=== PATIENT | female | born 1935 | race Caucasian/White ===

== ENCOUNTER 2023-04-20 02:58 | Inpatient (IN) | payer MEDICARE, BC ==
[2023-04-20] MEDS ORDERED: NALOXONE 0.4 MG/ML 1 ML VIAL IV PRN (03:23)
[2023-04-20] MEDS ORDERED: ONDANSETRON 4 MG/2 ML VIAL IVP PRN ×2 (03:23→18:43)
--- NOTE | 2023-04-20 03:31 | ED ---
Recheck HPI - General Chief Complaint: Abdominal Pain Stated Complaint: Small bowel obstruction Time Seen by Provider: 04/20/23 03:01 Source: patient, EMS, RN notes reviewed, old records reviewed Mode of arrival: EMS Limitations: no limitations - History of Present Illness Initial Comments: This is a 87-year-old female to the emergency department today. This patient presents today for evaluation regards to severe abdominal pain with diagnosed small bowel obstruction, patient does have NG tube in place. Pain is currently controlled patient accepted in transfer from outside facility, obstruction is related to along hernia MD Complaint: other (Small bowel obstruction with hernia) -: hour(s) Returns Today for: persistent/worsening pain related to initial visit Symptoms Since Prior Visit: worsening pain Associated Symptoms: none Treatments Prior to Arrival: Given Pain Meds on - Related Data Home Medications Medication Instructions Recorded Confirmed Apixaban [Eliquis] 5 mg PO BID 04/20/23 04/20/23 Donepezil [Aricept] 10 mg PO HS 04/20/23 04/20/23 Levothyroxine Sodium [Synthroid] 25 mcg PO DAILY 04/20/23 04/20/23 Memantine [Namenda] 5 mg PO DAILY 04/20/23 04/20/23 Metoprolol Succinate (ER) [Toprol 100 mg PO DAILY 04/20/23 04/20/23 XL] NIFEdipine [Adalat CC] 30 mg PO DAILY 04/20/23 04/20/23 Potassium Chloride ER [K-Dur 10] 10 meq PO BID 04/20/23 04/20/23 Rosuvastatin [Crestor] 10 mg PO HS 04/20/23 04/20/23 Previous Rx's Medication Instructions Recorded Acetaminophen Tab [Tylenol] 1,000 mg PO Q6HR PRN #30 tablet 04/24/23 Allergies Allergy/AdvReac Type Severity Reaction Status Date / Time No Known Allergies Allergy Verified 04/20/23 16:39 Review of Systems ROS Statement: Those systems with pertinent positive or pertinent negative responses have been documented in the HPI. ROS Other: All systems not noted in ROS Statement are negative. Past Medical History Past Medical History: Unable to Obtain Past Surgical History: Unable to Obtain Past Psychological History: Unable to Obtain General Exam General appearance: alert, in no apparent distress, anxious Head exam: Present: atraumatic, normocephalic, normal inspection Eye exam: Present: normal appearance, PERRL, EOMI. Absent: scleral icterus, conjunctival injection, periorbital swelling ENT exam: Present: normal exam, mucous membranes moist Neck exam: Present: normal inspection. Absent: tenderness, meningismus, lymphadenopathy Respiratory exam: Present: normal lung sounds bilaterally. Absent: respiratory distress, wheezes, rales, rhonchi, stridor Cardiovascular Exam: Present: normal rhythm, tachycardia, normal heart sounds. Absent: systolic murmur, diastolic murmur, rubs, gallop, clicks GI/Abdominal exam: Present: soft, normal bowel sounds. Absent: distended, tenderness, guarding, rebound, rigid Extremities exam: Present: normal inspection, full ROM, normal capillary refill. Absent: tenderness, pedal edema, joint swelling, calf tenderness Back exam: Present: normal inspection Neurological exam: Present: alert, oriented X3, CN II-XII intact Psychiatric exam: Present: normal affect, normal mood Skin exam: Present: warm, dry, intact, normal color. Absent: rash Course Vital Signs 04/20/23 04/20/23 04/20/23 03:13 04:05 04:30 Temperature 98.1 F Pulse Rate 105 H 89 90 Respiratory 21 19 18 Rate Blood Pressure 190/116 186/99 183/105 O2 Sat by Pulse 95 96 95 Oximetry 04/20/23 04/20/23 04/20/23 05:00 05:30 06:00 Temperature Pulse Rate 93 97 95 Respiratory 20 19 20 Rate Blood Pressure 128/100 166/85 166/85 O2 Sat by Pulse 95 95 91 L Oximetry 04/20/23 04/20/23 06:30 07:10 Temperature 97.4 F L Pulse Rate 93 80 Respiratory 19 16 Rate Blood Pressure 149/79 147/86 O2 Sat by Pulse 92 L 96 Oximetry - Reevaluation(s) Reevaluation #1: 04/20/23 03:29 Medical records reviewed Reevaluation #2: 04/20/23 03:29 Patient symptoms doesn't here in the ER Patient has NG tube placed Reevaluation #3: 04/20/23 03:30 Patient informed results questions answered Patient's pain is controlled Reevaluation #4: 04/20/23 03:30 Was pt. sent in by a medical professional or institution (, PA, [employer], urgent care, hospital, or [facility]...) When possible be specific @ -no Did you speak to anyone other than the patient for history (EMS, parent, family, police, friend...)? What history was obtained from this source @ -no Did you review nursing and triage notes (agree or disagree)? Why? @ -agree Are old charts reviewed (outside hosp., previous admission, EMS record, old EKG, old radiological studies, urgent care reports/EKG's, [facility] records)? Report findings @ -yes Differential Diagnosis (chest pain, altered mental status, abdominal pain women, abdominal pain men, vaginal bleeding, weakness, fever, dyspnea, syncope, headache, dizziness, GI bleed, back pain, seizure, CVA, palpatations, mental health, musculoskeletal)? @ -prior EKG interpreted by me (3pts min.). @ -yes X-rays interpreted by me (1pt min.). @ -yes Small bowel obstruction CT interpreted by me (1pt min.). @ -no U/S interpreted by me (1pt. min.). @ -no What testing was considered but not performed or refused? (CT, X-rays, U/S, labs)? Why? @ -none What meds were considered but not given or refused? Why? @ -none Did you discuss the management of the patient with other professionals (professionals i.e. , PA, [employer], lab, RT, psych nurse, secondary social studies teacher, building engineer, teacher, defence force senior officer, immigration case manager)? Give summary @ -no Was smoking cessation discussed for >3mins.? @ -no Was critical care preformed (if so, how long)? @ -no Were there social determinants of health that impacted care today? How? (Homelessness, low income, unemployed, alcoholism, drug addiction, transportation, low edu. Level, literacy, decrease access to med. care, residential, rehab)? @ -none Was there de-escalation of care discussed even if they declined (Discuss DNR or withdrawal of care, Hospice)? DNR status @ -no What co-morbidities impacted this encounter? (DM, HTN, Smoking, COPD, CAD, Cancer, CVA, ARF, Chemo, Hep., AIDS, mental health diagnosis, sleep apnea, morbid obesity)? @ -none Was patient admitted / discharged? Hospital course, mention meds given and route, prescriptions, significant lab abnormalities, going to OR and other pertinent info. @ - 87 female to the ER for evaluation as a transfer patient for small bowel obstruction, patient will be admitted for surgical evaluation and treatment Undiagnosed new problem with uncertain prognosis? @ -no Drug Therapy requiring intensive monitoring for toxicity (Heparin, Nitro, Insulin, Cardizem)? @ -no Were any procedures done? @ -no Diagnosis/symptom? @ -Small bowel obstruction Acute, or Chronic, or Acute on Chronic? @ -Acute Uncomplicated (without systemic symptoms) or Complicated (systemic symptoms)? @ -Complicated Side effects of treatment? @ -no Exacerbation, Progression, or Severe Exacerbation? @ -exacerbation Poses a threat to life or bodily function? How? (Chest pain, [place], [place], pneumonia, PE, COPD, DKA, ARF, appy, cholecystitis, CVA, Diverticulitis, Homicidal, Suicidal, threat to staff... and all critical care pts) @ -yes significant extremes of age Reevaluation #5: 04/20/23 03:30 Differential Abdominal Pain Women: Appendicitis, Cholecystitis, diverticulosis, ischemic bowel, pancreatitis, hepatitis, UTI, gastroenteritis, AAA, incarcerated hernia, bowel obstruction, constipation, inflammatory bowel, hepatitis, peptic ulcer disease, splenic infarction, perforated viscus, vulvitis, ovarian torsion, PID, kidney stone, placenta abruption, this is not meant to be an all-inclusive list - Consultations Consultation #1: Spoke with sound who agrees to admit this patient Medical Decision Making - Medical Decision Making 87 female to the ER for evaluation as a transfer patient for small bowel obstruction, patient will be admitted for surgical evaluation and treatment - Lab Data Result diagrams: 04/23/23 08:29 04/23/23 08:29 - Radiology Data Radiology results: report reviewed (sbo on computed tomography scan of prior hospital, also shortness x-ray chest and KUB here in the emergency department) Disposition Clinical Impression: Small bowel obstruction, Abdominal pain, Ventral hernia with bowel obstruction Disposition: ADMITTED IP TO THIS HOSP Condition: Stable Is patient prescribed a controlled substance at d/c from ED?: No Time of Disposition: 03:30
[2023-04-20] MEDS: SODIUM CHLORIDE 0.9% 1,000 ML IV SCH ×2 (03:43→22:03)
[2023-04-20] MEDS: MORPHINE SULFATE 4 MG/ML SYRINGE IV PRN (03:58)
--- NOTE | 2023-04-20 05:41 | XR ---
EXAMINATION TYPE: XR chest 1V portable DATE OF EXAM: 04/20/2023 COMPARISON: NONE HISTORY: Small bowel obstruction. TECHNIQUE: Single frontal view of the chest is obtained. FINDINGS: Post-CABG changes with sternal wires and mediastinal clips is present. Nasogastric tube is coiled in the gastric fundus. There is reticular increased markings bilaterally favoring chronic pare nchymal change with focal lateral left basilar increased opacity. The cardiac silhouette size is mil dly enlarged. Degenerative change bilateral glenohumeral joints is seen. Cholecystectomy clips are no noel. IMPRESSION: Mild cardiomegaly and chronic parenchymal changes with patchy lateral left basilar acute infiltrate and/or atelectasis.
--- NOTE | 2023-04-20 05:43 | XR ---
EXAMINATION TYPE: XR KUB portable DATE OF EXAM: 04/20/2023 CLINICAL HISTORY: Small bowel obstruction. TECHNIQUE: 2 supine KUB images of the abdomen are obtained. COMPARISON: None. FINDINGS: Nasogastric tube is coiled in the gastric fundus. Some paucity of bowel gas. Scattered gas seen in nondistended bowel loops. Slightly prominent gas-filled bowel loop right upper pelvis. Contra st from recent outside CT seen in the right proximal ureter is slightly prominent. Contrast also fill ing bladder. There is levoconvex scoliosis centered at L2-L3 level with multilevel disc space narrowi ng and spurring. Post-CABG changes to the chest are partially imaged. [id number] narrowing of both hip joints is present. IMPRESSION: Overall nonspecific bowel gas pattern.
--- NOTE | 2023-04-20 12:21 | P.GSHP ---
History of Present Illness H&P Date: 04/20/23 CHIEF COMPLAINT: Abdominal pain HISTORY OF PRESENT ILLNESS: This is an 87 year old female who presented initially to [address] [place] [address] regarding her abdominal pain. She apparently had epigastric pain with nausea and vomiting for 3 days per patient's chart. She had a CAT scan completed their the head showed evidence of multiple borderline dilated small bowel loops measuring up to nearly 3 cm concerning for an evolving obstruction secondary to a right abdominal wall hernia containing bowel. Patient was then transferred to [facility] to be evaluated by surgical service. Patient has NG tube in place with about 130 mL brownish output. She reports that her pain is improving. She is having some flatus. No bowel movement reported. She does have a history of dementia. History was mostly obtained from patient's chart. Past surgical history does include an appendectomy, cholecystectomy and hysterectomy. Cardiac history of CABG. Patient is on Eliquis last dose 04/19/23 at 6pm. PAST MEDICAL HISTORY: Dementia, coronary artery disease, hyperlipidemia, hypertension, hypothyroidism PAST SURGICAL HISTORY: Appendectomy, cholecystectomy, hysterectomy,CABG, IVC filter MEDICATIONS: See below ALLERGIES: See below SOCIAL HISTORY: No illicit drug use. REVIEW OF SYSTEMS: CONSTITUTIONAL: Denies fever or chills. HEENT: Denies blurred vision, vision changes, or eye pain. Denies hemoptysis CARDIOVASCULAR: Denies chest pain or pressure. RESPIRATORY: No shortness of breath. GASTROINTESTINAL: See HPI for pertinent findings HEMATOLOGIC: Denies bleeding disorders. GENITOURINARY: Denies any blood in urine or increased urinary frequency. SKIN: Denies pruitis. Denies rash. PHYSICAL EXAM: VITAL SIGNS: Reviewed GENERAL: Well-developed in no acute distress. ABDOMEN: Soft. Nondistended. mild tenderness with palpation right side abdomen. Old midline scars noted. Hernia partially reducible on the right abdominal wall NEUROLOGIC: Alert and oriented. Cranial nerves II through XII grossly intact. LABORATORY DATA: IMAGING: Chest x-ray not currently in chronic peripheral changes patchy left lateral basilar infiltrate and/or atelectasis KUB x-ray overall nonspecific bowel gas pattern Computed tomography scan abdomen multiple borderline dilated small bowel loops measuring up to nearly 3 cm concerning for evolving obstruction secondary to right abdominal wall hernia containing bowel. Proximal renal artery atherosclerosis calcifications large hiatal hernia. Diverticulosis without diverticulitis cholecystectomy. Emphysematous changes. Bibasilar atelectasis. ASSESSMENT: 1. Small bowel obstruction secondary to right abdominal wall hernia containing bowel noted on computed tomography scan PLAN: -Patient scheduled for repair of incarcerated abdominal wall hernia today with Dr. Alejandro -Continue NG tube for decompression -Keep patient nothing by mouth -Continue IV fluids -Continue supportive care Physician Assistant Winemaker note has been reviewed by physician. Signing provider agrees with the documented findings, assessment, and plan of care. I have personally seen and examined the patient, reviewed the GRAVE CLEANER /PAs history, exam and MDM and agree with the assessment and plan as written. Based on total visit time, I have performed more than 50% of the visit. As above: Patient transferred from outside hospital with small bowel obstruction. The patient is a hernia present in the right paramedian location. She has a vertical incision there that appears to be likely related to previous cholecystectomy. Hernia is partially reducible. Mild tenderness there. Findings discussed with patient. She is mildly confused. We'll proceed with o pen repair incarcerated incisional hernia with possible mesh. Risks of bleeding, infection, recurrence, bladder and bowel injury, numbness, nerve injury were discussed with the patient. The patient understands and wishes to proceed. We'll attempt to reach the patient's family to discuss further with them as well. Past Medical History Past Medical History: Unable to Obtain Past Surgical History: Unable to Obtain Past Psychological History: Unable to Obtain Medications and Allergies Home Medications Medication Instructions Recorded Confirmed Type Apixaban [Eliquis] 5 mg PO BID 04/20/23 04/20/23 History Donepezil [Aricept] 10 mg PO HS 04/20/23 04/20/23 History Levothyroxine Sodium [Synthroid] 25 mcg PO DAILY 04/20/23 04/20/23 History Memantine [Namenda] 5 mg PO DAILY 04/20/23 04/20/23 History Metoprolol Succinate (ER) [Toprol 100 mg PO DAILY 04/20/23 04/20/23 History Xl] NIFEdipine [Adalat CC] 30 mg PO DAILY 04/20/23 04/20/23 History Potassium Chloride ER [K-Dur 10] 10 meq PO BID 04/20/23 04/20/23 History Rosuvastatin [Crestor] 10 mg PO HS 04/20/23 04/20/23 History Allergies Allergy/AdvReac Type Severity Reaction Status Date / Time No Known Allergies Allergy Verified 04/20/23 07:19 Surgical - Exam Vital Signs Temp Pulse Resp BP Pulse Ox 98.1 F 105 H 21 190/116 95 04/20/23 03:13 04/20/23 03:13 04/20/23 03:13 04/20/23 03:13 04/20/23 03:13
--- NOTE | 2023-04-20 14:28 | P.CONS ---
History of Present Illness - Reason for Consult Consult date: 04/20/23 - Chief Complaint medical management, consult - History of Present Illness 87 year old woman with history of 4v CABG, MV repair, Paroxysmal AFib on Eliquis, HTN, HLD, Hypothyroidism presented for evaluation of SBO and non- reducible hernia. Medicine consulted for medical management. Pt has not passed gas or stool, has no appetite, c/o abdominal pain. Denies fevers, chills, cp, palps, syncope, diarrhea, numbness/weakness of extremities. In the emergency room, patient is afebrile, 147/86, heart rate 80, 96% on room air. Chest x-ray shows border line cardiomegaly with interstitial changes consistent with mild vascular congestion, NG tube in good place, sternotomy wires. KUB showed an overall nonspecific bowel gas pattern. All Systems reviewed and pertinent positives and negatives noted in HPI, all other symptoms are negative Gen: in no apparent distress, resting comfortably in bed Eyes: PERRL, no scleral injection or icterus HENT: normocephalic, atraumatic, good hearing acuity, moist mucous membranes Neck: no tracheal deviation, full range of motion Resp: good air exchange, breathing comfortably with no accessory muscle use, no tactile fremitus, clear to auscultation bilaterally CVS: good distal perfusion x 4, no pitting edema, regular rate and rhythm without murmurs GI: Distended, tender to palpation in the periumbilical region : no suprapubic tenderness, no CVAT, neal catheter not present MSK: no clubbing, no cyanosis, no noted contractures of extremities Skin: no noted rashes, petechiae; temperature of skin is appropriate Neuro: moving all extremities without signs of weakness, CN II-XII intact Psych: cooperative, euthymic mood, insight and judgment intact Assessment/plan: Nonreducible hernia Small bowel obstruction -Gen. surgery is managing, plan is for OR today for hernia repair with mesh placement -NG tube -Nothing by mouth -IV fluids History of 4 vessel CABG Mitral valve repair Paroxysmal atrial fibrillation Hypertension Hyperlipidemia Hypothyroidism -Home medications reviewed and reconciled: Hold home Apixiban, continue metoprolol, Crestor, nifedipine, levothyroxine Past Medical History Past Medical History: Unable to Obtain Past Surgical History: Unable to Obtain Past Psychological History: Unable to Obtain Medications and Allergies Home Medications Medication Instructions Recorded Confirmed Type Apixaban [Eliquis] 5 mg PO BID 04/20/23 04/20/23 History Donepezil [Aricept] 10 mg PO HS 04/20/23 04/20/23 History Levothyroxine Sodium [Synthroid] 25 mcg PO DAILY 04/20/23 04/20/23 History Memantine [Namenda] 5 mg PO DAILY 04/20/23 04/20/23 History Metoprolol Succinate (ER) [Toprol 100 mg PO DAILY 04/20/23 04/20/23 History Xl] NIFEdipine [Adalat CC] 30 mg PO DAILY 04/20/23 04/20/23 History Potassium Chloride ER [K-Dur 10] 10 meq PO BID 04/20/23 04/20/23 History Rosuvastatin [Crestor] 10 mg PO HS 04/20/23 04/20/23 History Allergies Allergy/AdvReac Type Severity Reaction Status Date / Time No Known Allergies Allergy Verified 04/20/23 07:19 Physical Exam Osteopathic Statement: *. No significant issues noted on an osteopathic structural exam other than those noted in the History and Physical/Consult. Vitals: Vital Signs Temp Pulse Resp BP Pulse Ox 04/20/23 07:10 97.4 F L 80 16 147/86 96 04/20/23 06:30 93 19 149/79 92 L 04/20/23 06:00 95 20 166/85 91 L 04/20/23 05:30 97 19 166/85 95 04/20/23 05:00 93 20 128/100 95 04/20/23 04:30 90 18 183/105 95 04/20/23 04:05 89 19 186/99 96 04/20/23 03:13 98.1 F 105 H 21 190/116 95 Intake and Output 04/19/23 04/20/23 04/20/23 22:59 06:59 14:59 Other: Weight 147 kg
[2023-04-20] MEDS ORDERED: IV FLUID CONTINUATION 1,000 ML IV ONE (16:40)
[2023-04-20] MEDS ORDERED: ONDANSETRON 4 MG/2 ML VIAL IVP ONE (16:53)
[2023-04-20] MEDS ORDERED: DEXAMETHASONE SOD PHOSPHATE 4 MG/ML 1 ML VIAL IVP ONE (16:53)
[2023-04-20] MEDS ORDERED: HEPARIN SODIUM,PORCINE/PF 5,000 UNIT/0.5 ML SYRINGE SQ ONE (17:01)
[2023-04-20] MEDS ORDERED: HEPARIN SODIUM,PORCINE 5,000 UNIT/ML 1 ML VIAL SQ ONE (17:29)
[2023-04-20] MEDS ORDERED: NEOSTIGMINE 1 MG/ML 10 ML VIAL ONE (17:34)
[2023-04-20] MEDS ORDERED: GLYCOPYRROLATE 0.2 MG/ML 2 ML VIAL ONE (17:34)
[2023-04-20] MEDS ORDERED: fentaNYL (PF) 50 MCG/ML 2 ML AMP ONE (17:34)
[2023-04-20] MEDS ORDERED: ROCURONIUM 10 MG/ML (5 ML VIAL) IV ONE (17:34)
[2023-04-20] MEDS ORDERED: SODIUM CHLORIDE 0.9% 50 ML with ceFAZolin 2,000 MG IV ONE ×2 (17:34)
[2023-04-20] MEDS ORDERED: LIDOCAINE 1% INJ 10MG/ML (20 ML MDV) ONE (17:34)
[2023-04-20] MEDS ORDERED: PROPOFOL 10 MG/ML 20 ML VIAL IV ONE (17:34)
[2023-04-20] MEDS ORDERED: SUCCINYLCHOLINE CHLORIDE 200 MG/10 ML VIAL IV ONE (17:34)
[2023-04-20] MEDS ORDERED: LACTATED RINGERS 1,000 ML IV ONE ×2 (18:05→20:18)
[2023-04-20] MEDS ORDERED: BUPIVACAINE (PF) 0.25% 30 ML VIAL SQ ONE (18:25)
[2023-04-20] MEDS ORDERED: traMADol 50 MG TAB PO PRN (18:43)
[2023-04-20] MEDS ORDERED: ACETAMINOPHEN TAB 325 MG TAB PO PRN (18:43)
[2023-04-20] MEDS ORDERED: HYDROmorphone 0.5 MG/0.5 ML SYRINGE IVP PRN (18:43)
[2023-04-20] MEDS ORDERED: HYDROmorphone 1 MG/ML 1 ML SYRINGE IVP PRN (18:43)
[2023-04-20] MEDS ORDERED: ACETAMINOPHEN IV (For NPO) 1,000 MG in EMPTY BAG 1 BAG IVPB ONE (18:43)
--- NOTE | 2023-04-20 18:52 | P.OP ---
Date of Procedure: 04/20/23 Procedure(s) Performed: PREOPERATIVE DIAGNOSIS: Incarcerated incisional hernia with bowel obstruction POSTOPERATIVE DIAGNOSIS: Incarcerated incisional hernia PROCEDURE: Open repair incarcerated incisional hernia with mesh SURGEON: Dr. Alejandro ANESTHESIA: General OPERATIVE PROCEDURE DETAILS: Patient placed on the operating table in the supine position. Abdomen was prepped and draped in usual sterile fashion. The previous right paramedian incision was excised. Dissection through the subcutaneous tissues took place using electrocautery. A incarcerated incisional hernia was identified. The hernia sac was carefully dissected down to the level of the fascia where it was excised. The hernia sac contained a portion of omentum. This was removed. The bowel was no longer within the hernia sac and appeared to have been reduced earlier today. A single defect measuring 2.6 cm x 2 cm was found. A 6.4 ventral ex mesh was placed beneath the fascia and sutured in place using trans-fascial 0 Ethibond sutures. The defect was then closed horizontally using vest over pants interrupted horizontal mattress sutures of 0 Ethibond. The subcutaneous tissues were closed using 3-0 Vicryl sutures. The skin was closed using yara. Sterile dressings were applied. HERNIA CHARACTERISTICS: Length: 2.6 cm Width: 2 cm Type: Incarcerated incisional TYPE OF MESH USED: 6.4 cm ventral ex LOCATION OF MESH: Sub-lay FIXATION: 0 Ethibond PREOPERATIVE DISCUSSION ON SMOKING CESSASTION: Yes PREOPERATIVE DISCUSSION ON MORBID OBESITY: Yes PREOPERATIVE DISCUSSION ON APPROPRIATE USE OF NARCOTIC USE: Yes PREOPERATIVE EDUCATION: Multi Modal, Smoking Cessation and Weight Loss with BMI over 35. DISPOSITION: Stable to recovery room
[2023-04-20] MEDS ORDERED: LABETALOL 5 MG/ML VIAL MDV IVP ONE (19:12)
[2023-04-20] MEDS: HYDROcodone/APAP 5-325MG 1 EACH TAB PO PRN (21:55)
[2023-04-20] MEDS: POTASSIUM CHLORIDE ER 10 MEQ TAB.ER.PRT PO SCH (21:55)
[2023-04-20] MEDS: ATORVASTATIN 20 MG TAB PO SCH (21:55)
[2023-04-20] MEDS: DONEPEZIL 10 MG TAB PO SCH (21:56)
[2023-04-20] MEDS: PIPERACILLIN-TAZOBACTAM 3.375 GM in SODIUM CHLORIDE 0.9% 100 ML IVPB SCH (21:56)
[2023-04-20] MEDS: HEPARIN SODIUM,PORCINE 5,000 UNIT/ML 1 ML VIAL SQ SCH (23:27)
[2023-04-21] MEDS: LEVOTHYROXINE 25 MCG TAB PO SCH (06:13)
[2023-04-21] MEDS: SODIUM CHLORIDE 0.9% 1,000 ML IV SCH ×2 (07:15→21:57)
[2023-04-21 07:56] LABS: Basophils % (A) 0 %; Eosinophils % (A) 0 %; HCT 38.4 % (34.0-46.0); HGB 12.7 gm/dL (11.4-16.0); Lymphocytes # (A) 0.5 k/uL (1.0-4.8); Lymphocytes % (A) 5 %; MCH 33.7 pg (25.0-35.0); MCHC 33.1 g/dL (31.0-37.0); MCV 101.9 fL (80.0-100.0); Macrocytosis Slight; Mean Platelet Volume 7.7; Monocytes # (A) 0.6 k/uL (0-1.0); Monocytes % (A) 6 %; Neutrophils # (A) 9.6 k/uL (1.3-7.7); Neutrophils % (A) 88 %; Platelet Count 132 k/uL (150-450); RBC 3.77 m/uL (3.80-5.40); RDW 13.2 % (11.5-15.5); WBC 10.9 k/uL (3.8-10.6)
[2023-04-21 08:14] LABS: ALT 25 U/L (4-34); AST 43 U/L (14-36); African American GFR (CKD) 51 (>60 ml/min/1.73 sqM); Albumin 3.4 g/dL (3.5-5.0); Albumin/Globulin Ratio 1.4; Alkaline Phosphatase 65 U/L (38-126); Anion Gap 10 mmol/L; Blood Urea Nitrogen 22 mg/dL (7-17); Calcium 8.5 mg/dL (8.4-10.2); Carbon Dioxide 23 mmol/L (22-30); Chloride 104 mmol/L (98-107); Globulin 2.4 g/dL; Glucose 121 mg/dL (74-99); Magnesium 1.7 mg/dL (1.6-2.3); Non-African American GFR(CKD) 44 (>60 ml/min/1.73 sqM); Phosphorus 3.6 mg/dL (2.5-4.5); Potassium 3.8 mmol/L (3.5-5.1); Sodium 137 mmol/L (137-145); Total Bilirubin 0.9 mg/dL (0.2-1.3); Total Protein 5.8 g/dL (6.3-8.2)
[2023-04-21] MEDS: PIPERACILLIN-TAZOBACTAM 3.375 GM in SODIUM CHLORIDE 0.9% 100 ML IVPB SCH ×2 (08:44→16:49)
[2023-04-21] MEDS: PANTOPRAZOLE 40 MG/10 ML VIAL IV SCH (08:44)
[2023-04-21] MEDS: POTASSIUM CHLORIDE ER 10 MEQ TAB.ER.PRT PO SCH ×2 (08:44→20:55)
[2023-04-21] MEDS: MEMANTINE 5 MG TAB PO SCH (08:44)
[2023-04-21] MEDS: NIFEdipine XL 30 MG TAB.ER.24 PO SCH (08:44)
[2023-04-21] MEDS: HEPARIN SODIUM,PORCINE 5,000 UNIT/ML 1 ML VIAL SQ SCH ×2 (08:45→16:49)
[2023-04-21] MEDS: METOPROLOL SUCCINATE (ER) 100 MG TAB.ER.24H PO SCH (10:10)
--- NOTE | 2023-04-21 10:55 | P.PN ---
Subjective Progress Note Date: 04/21/23 NAEON. No F/C. No SOB or CP. Admits to small amount of flatus. No Bm. Voiding. States that her abdominal pain is improving slowly. Minimally ambulatory since OR. Objective - Vital Signs Vital signs: Vital Signs Temp 98.4 F 04/21/23 08:00 Pulse 87 04/21/23 08:00 Resp 17 04/21/23 08:00 BP 159/78 04/21/23 08:00 Pulse Ox 96 04/21/23 08:00 FiO2 Intake & Output 04/20/23 04/21/23 04/21/23 18:59 06:59 18:59 Intake Total 1550 20 300 Output Total 25 Balance 1525 20 300 Weight 66.714 kg 66.714 kg Intake: IV 1550 20 Invasive Line 2 20 Oral 300 Output: Estimated Blood Loss 25 Other: Voiding Method Toilet # Voids 2 1 - Exam Gen: AxO, NAD Pulm: non-labored respirations Abd: soft, mildly-tender around incisions, minimally distended, no guarding/rebound/rigidity Incisions: C/D/I, no erythema or fluctuence appreciated HENRY: intact, producing serosang output Extrem: no edema seen - Labs CBC & Chem 7: 04/21/23 07:25 04/21/23 07:25 Labs: Abnormal Lab Results - Last 24 Hours (Table) 04/21/23 04/21/23 Range/Units 07:25 07:25 WBC 10.9 H (3.8-10.6) k/uL RBC 3.77 L (3.80-5.40) m/uL MCV 101.9 H (80.0-100.0) fL Plt Count 132 L (150-450) k/uL Neutrophils # 9.6 H (1.3-7.7) k/uL Lymphocytes # 0.5 L (1.0-4.8) k/uL BUN 22 H (7-17) mg/dL Creatinine 1.12 H (0.52-1.04) mg/dL Glucose 121 H (74-99) mg/dL AST 43 H (14-36) U/L Total Protein 5.8 L (6.3-8.2) g/dL Albumin 3.4 L (3.5-5.0) g/dL Assessment and Plan Assessment: Patient is a 87 year old female who is POD#1 from ventral hernia repair for small bowel incarceration Plan: -CLD astolerated -IVF hydration -PRN pain and nausea control -DVT/GI PPx -Encourage ambulation Ronaldo Perez MD General Surgery
--- NOTE | 2023-04-21 14:47 | P.PN ---
Subjective Progress Note Date: 04/21/23 No new complaints. Pt reports mildly improved appetite, but very little. Also says she feels she may pass gas soon. Gen: in no apparent distress, resting comfortably in bed Eyes: PERRL, no scleral injection or icterus HENT: normocephalic, atraumatic, good hearing acuity, moist mucous membranes Neck: no tracheal deviation, full range of motion Resp: good air exchange, breathing comfortably with no accessory muscle use, no tactile fremitus, clear to auscultation bilaterally CVS: good distal perfusion x 4, no pitting edema, regular rate and rhythm without murmurs GI: Distended, tender to palpation in the periumbilical region : no suprapubic tenderness, no CVAT, neal catheter not present MSK: no clubbing, no cyanosis, no noted contractures of extremities Skin: no noted rashes, petechiae; temperature of skin is appropriate Neuro: moving all extremities without signs of weakness, CN II-XII intact Psych: cooperative, euthymic mood, insight and judgment intact Hospital Course: 87 year old woman with history of 4v CABG, MV repair, Paroxysmal AFib on Eliquis, HTN, HLD, Hypothyroidism presented for evaluation of SBO and non- reducible hernia. Medicine consulted for medical management. In the emergency room, patient is afebrile, 147/86, heart rate 80, 96% on room air. Chest x-ray shows border line cardiomegaly with interstitial changes consistent with mild vascular congestion, NG tube in good place, sternotomy wires. KUB showed an overall nonspecific bowel gas pattern. Assessment/plan: Nonreducible hernia Small bowel obstruction -Gen. surgery is managing, s/p hernia reduction and mesh placement -NG tube discontinued -Nothing by mouth advanced as tolerated -IV fluids History of 4 vessel CABG Mitral valve repair Paroxysmal atrial fibrillation Hypertension Hyperlipidemia Hypothyroidism -Home medications reviewed and reconciled: Hold home Apixiban, continue metoprolol, Crestor, nifedipine, levothyroxine Objective - Vital Signs Vital signs: Vital Signs Temp 98.4 F 04/21/23 08:00 Pulse 87 04/21/23 08:00 Resp 17 04/21/23 08:00 BP 159/78 04/21/23 08:00 Pulse Ox 96 04/21/23 08:00 FiO2 Intake & Output 04/20/23 04/21/23 04/21/23 18:59 06:59 18:59 Intake Total 1550 20 300 Output Total 25 Balance 1525 20 300 Weight 66.714 kg 66.714 kg Intake: IV 1550 20 Invasive Line 2 20 Oral 300 Output: Estimated Blood Loss 25 Other: Voiding Method Toilet # Voids 2 1 - Labs CBC & Chem 7: 04/21/23 07:25 04/21/23 07:25 Labs: Abnormal Lab Results - Last 24 Hours (Table) 04/21/23 04/21/23 Range/Units 07:25 07:25 WBC 10.9 H (3.8-10.6) k/uL RBC 3.77 L (3.80-5.40) m/uL MCV 101.9 H (80.0-100.0) fL Plt Count 132 L (150-450) k/uL Neutrophils # 9.6 H (1.3-7.7) k/uL Lymphocytes # 0.5 L (1.0-4.8) k/uL BUN 22 H (7-17) mg/dL Creatinine 1.12 H (0.52-1.04) mg/dL Glucose 121 H (74-99) mg/dL AST 43 H (14-36) U/L Total Protein 5.8 L (6.3-8.2) g/dL Albumin 3.4 L (3.5-5.0) g/dL
[2023-04-21] MEDS: HYDROcodone/APAP 5-325MG 1 EACH TAB PO PRN (16:49)
[2023-04-21] MEDS: DONEPEZIL 10 MG TAB PO SCH (20:55)
[2023-04-21] MEDS: ATORVASTATIN 20 MG TAB PO SCH (20:55)
[2023-04-22] MEDS: MORPHINE SULFATE 4 MG/ML SYRINGE IV PRN (00:01)
[2023-04-22] MEDS: PIPERACILLIN-TAZOBACTAM 3.375 GM in SODIUM CHLORIDE 0.9% 100 ML IVPB SCH ×4 (00:01→23:15)
[2023-04-22] MEDS: HEPARIN SODIUM,PORCINE 5,000 UNIT/ML 1 ML VIAL SQ SCH ×4 (00:23→23:15)
[2023-04-22] MEDS ORDERED: LORazepam 0.5 MG TAB PO PRN (02:06)
[2023-04-22] MEDS: LEVOTHYROXINE 25 MCG TAB PO SCH (06:03)
[2023-04-22] MEDS: POTASSIUM CHLORIDE ER 10 MEQ TAB.ER.PRT PO SCH ×2 (08:53→21:32)
[2023-04-22] MEDS: METOPROLOL SUCCINATE (ER) 100 MG TAB.ER.24H PO SCH (08:53)
[2023-04-22] MEDS: MEMANTINE 5 MG TAB PO SCH (08:53)
[2023-04-22] MEDS: NIFEdipine XL 30 MG TAB.ER.24 PO SCH (08:53)
--- NOTE | 2023-04-22 10:34 | P.PN ---
Subjective Progress Note Date: 04/22/23 No new complaints. Gen: in no apparent distress, resting comfortably in bed Eyes: PERRL, no scleral injection or icterus HENT: normocephalic, atraumatic, good hearing acuity, moist mucous membranes Neck: no tracheal deviation, full range of motion Resp: good air exchange, breathing comfortably with no accessory muscle use, no tactile fremitus, clear to auscultation bilaterally CVS: good distal perfusion x 4, no pitting edema, regular rate and rhythm without murmurs GI: Distended, tender to palpation in the periumbilical region : no suprapubic tenderness, no CVAT, neal catheter not present MSK: no clubbing, no cyanosis, no noted contractures of extremities Skin: no noted rashes, petechiae; temperature of skin is appropriate Neuro: moving all extremities without signs of weakness, CN II-XII intact Psych: cooperative, euthymic mood, insight and judgment intact Hospital Course: 87 year old woman with history of 4v CABG, MV repair, Paroxysmal AFib on Eliquis, HTN, HLD, Hypothyroidism presented for evaluation of SBO and non- reducible hernia. Medicine consulted for medical management. In the emergency room, patient is afebrile, 147/86, heart rate 80, 96% on room air. Chest x-ray shows border line cardiomegaly with interstitial changes consistent with mild vascular congestion, NG tube in good place, sternotomy wires. KUB showed an overall nonspecific bowel gas pattern. Assessment/plan: Nonreducible hernia Small bowel obstruction -Gen. surgery is managing, s/p hernia reduction and mesh placement -NG tube discontinued -Nothing by mouth advanced as tolerated -IV fluids History of 4 vessel CABG Mitral valve repair Paroxysmal atrial fibrillation Hypertension Hyperlipidemia Hypothyroidism -Home medications reviewed and reconciled: Hold home Apixiban, continue metoprolol, Crestor, nifedipine, levothyroxine Objective - Vital Signs Vital signs: Vital Signs Temp 97.8 F 04/22/23 08:00 Pulse 68 04/22/23 08:00 Resp 18 04/22/23 08:00 BP 147/82 04/22/23 08:00 Pulse Ox 93 L 04/22/23 08:00 FiO2 Intake & Output 04/21/23 04/22/23 04/22/23 18:59 06:59 18:59 Intake Total 300 Balance 300 Intake: Oral 300 Other: # Voids 5 2 - Labs CBC & Chem 7: 04/21/23 07:25 04/21/23 07:25
--- NOTE | 2023-04-22 12:10 | P.PN ---
Progress Note - Text Progress Note Date: 04/22/23 The patient is sleeping comfortably in her bed. She denies any significant abdominal pain. On exam vital signs are stable. Incision is clean dry intact. Status post repair of incarcerated incisional hernia. Patient will K receive supportive care.
[2023-04-22] MEDS: SODIUM CHLORIDE 0.9% 1,000 ML IV SCH ×2 (12:34→22:09)
[2023-04-22] MEDS: PANTOPRAZOLE 40 MG/10 ML VIAL IV SCH (12:35)
[2023-04-22] MEDS: ATORVASTATIN 20 MG TAB PO SCH (21:32)
[2023-04-22] MEDS: DONEPEZIL 10 MG TAB PO SCH (21:32)
[2023-04-23] MEDS: LEVOTHYROXINE 25 MCG TAB PO SCH (06:17)
[2023-04-23] MEDS: PIPERACILLIN-TAZOBACTAM 3.375 GM in SODIUM CHLORIDE 0.9% 100 ML IVPB SCH ×3 (08:50→23:49)
[2023-04-23] MEDS: NIFEdipine XL 30 MG TAB.ER.24 PO SCH (08:50)
[2023-04-23] MEDS: PANTOPRAZOLE 40 MG/10 ML VIAL IV SCH (08:50)
[2023-04-23] MEDS: METOPROLOL SUCCINATE (ER) 100 MG TAB.ER.24H PO SCH (08:50)
[2023-04-23] MEDS: HEPARIN SODIUM,PORCINE 5,000 UNIT/ML 1 ML VIAL SQ SCH ×2 (08:50→17:49)
[2023-04-23] MEDS: MEMANTINE 5 MG TAB PO SCH (08:50)
[2023-04-23] MEDS: POTASSIUM CHLORIDE ER 10 MEQ TAB.ER.PRT PO SCH ×2 (08:50→21:51)
[2023-04-23 09:05] LABS: Basophils % (A) 0 %; Eosinophils # (A) 0.2 k/uL (0-0.7); Eosinophils % (A) 3 %; HCT 38.6 % (34.0-46.0); HGB 12.8 gm/dL (11.4-16.0); Lymphocytes # (A) 0.9 k/uL (1.0-4.8); Lymphocytes % (A) 11 %; MCH 33.5 pg (25.0-35.0); MCHC 33.1 g/dL (31.0-37.0); MCV 101.4 fL (80.0-100.0); Mean Platelet Volume 7.7; Monocytes # (A) 0.7 k/uL (0-1.0); Monocytes % (A) 9 %; Neutrophils # (A) 6.3 k/uL (1.3-7.7); Neutrophils % (A) 76 %; Platelet Count 154 k/uL (150-450); RBC 3.81 m/uL (3.80-5.40); RDW 12.7 % (11.5-15.5); WBC 8.3 k/uL (3.8-10.6)
[2023-04-23 09:19] LABS: African American GFR (CKD) 66 (>60 ml/min/1.73 sqM); Anion Gap 9 mmol/L; Blood Urea Nitrogen 11 mg/dL (7-17); Calcium 8.8 mg/dL (8.4-10.2); Carbon Dioxide 26 mmol/L (22-30); Chloride 103 mmol/L (98-107); Glucose 97 mg/dL (74-99); Non-African American GFR(CKD) 58 (>60 ml/min/1.73 sqM); Potassium 3.7 mmol/L (3.5-5.1); Sodium 138 mmol/L (137-145)
--- NOTE | 2023-04-23 12:57 | P.PN ---
Subjective Progress Note Date: 04/23/23 CHIEF COMPLAINT: Incarcerated incisional hernia with bowel obstruction HISTORY OF PRESENT ILLNESS: Postoperative day #3 status post open repair of incarcerated incisional hernia with mesh. Patient sitting at bedside chair comfortably. Reports pain is controlled. Denies any nausea or vomiting. No BM. Small amount of flatus. Afebrile. WBC 8.3 Hgb 12.8 platelets 154 sodium is 138 potassium 3.7 creatinine 0.90 PHYSICAL EXAM: VITAL SIGNS: Reviewed. GENERAL: Well-developed in no acute distress. ABDOMEN: Soft. Mildly distended. Incision site clean dry and intact. Mildly tender on the right side of the incision. Ecchymosis noted on the left side of the incision NEUROLOGIC: awake and alert ASSESSMENT: 1. Incarcerated incisional hernia with bowel obstruction PLAN: -Continue clear liquid diet -Encouraged patient to increase activity level -Continue pain management -PT OT on consult -senior case manager on consult for possible placement -DVT prophylaxis subcu heparin Physician Wood Calker note has been reviewed by physician. Signing provider agrees with the documented findings, assessment, and plan of care. I have personally seen and examined the patient, reviewed the REPLENISHMENT BUYER /PAs history, exam and MDM and agree with the assessment and plan as written. Based on total visit time, I have performed more than 50% of the visit. As above: Patient doing well today. Minimal pain. Tolerating diet. She had a bowel movement earlier. Continue advancing diet. Possible transfer to rehab tomorrow. Objective - Vital Signs Vital signs: Vital Signs Temp 98.1 F 04/23/23 07:22 Pulse 69 04/23/23 07:22 Resp 16 04/23/23 07:22 BP 112/68 04/23/23 07:22 Pulse Ox 96 04/23/23 07:22 FiO2 Intake & Output 04/22/23 04/23/23 04/23/23 18:59 06:59 18:59 Other: Voiding Method Toilet # Voids 4 1 - Labs CBC & Chem 7: 04/23/23 08:29 04/23/23 08:29 Labs: Abnormal Lab Results - Last 24 Hours (Table) 04/23/23 Range/Units 08:29 MCV 101.4 H (80.0-100.0) fL Lymphocytes # 0.9 L (1.0-4.8) k/uL
--- NOTE | 2023-04-23 14:21 | P.PN ---
Subjective Progress Note Date: 04/23/23 87 year old woman with history of CABG, MV repair, Paroxysmal AFib on Eliquis, HTN, HLD, Hypothyroidism presented for evaluation of SBO and non-reducible hernia. Medicine consulted for medical management. Underwent open repair incarcerated incisional hernia with mesh on 04/20. 04/23 Patient was seen and examined. Reports well controlled pain at the site of incision. CBC MCV 101.4. BMP unremarkable. Surgery recommends CLD and increased activity level. General: non toxic, no distress, appears at stated age Derm: warm, dry Head: atraumatic, normocephalic, symmetric Eyes: EOMI, no lid lag, anicteric sclera Cardiovascular: S1S2 reg, no murmur Lungs: CTA bilateral, no rhonchi, no rales , no accessory muscle use Abdominal: soft, nontender to palpation, no guarding, no appreciable organomegaly Ext: no gross muscle atrophy, no edema, no contractures Neuro: no focal neuro deficits Psych: Alert, oriented, appropriate affect Based on my assessment of this patient, this patient meets a moderate complexity level of care. Patient has a new diagnosis of incarcerated hernia status post open repair incarcerated incisional hernia with mesh on 04/20 with uncertain prognosis. Nonreducible hernia Small bowel obstruction: CLD and advance as tolerated. Surgery management. History of 4 vessel CABG: Metoprolol as below. Lipitor 20 mg PO QHS. Mitral valve repair Paroxysmal atrial fibrillation: Restart Eliquis 5 mg PO BID. Metoprolol 100 mg PO QD. Hypertension: Metoprolol as above. Nifedipine 30 mg PO QD. Hyperlipidemia: Lipitor as above. Hypothyroidism: Synthroid 25 mcg PO QD. CODE STATUS: FULL CODE DVT Prophylaxis: Eliquis PO GI Prophylaxis: Protonix IV Designated medical POA if patient is not able to make medical decisions for themselves: I have reviewed the following clinical application consultant notes: Surgery note. I have reviewed the results of the following tests: CBC, BMP. I have ordered the following tests: I have discussed the care of this patient with the following independent historian: I have independently interpreted the following test below: I have discussed the management of this patient with the following physician: Objective - Vital Signs Vital signs: Vital Signs Temp 97.9 F 04/23/23 13:38 Pulse 67 04/23/23 13:38 Resp 19 04/23/23 13:38 BP 126/64 04/23/23 13:38 Pulse Ox 95 04/23/23 13:38 FiO2 Intake & Output 04/22/23 04/23/23 04/23/23 18:59 06:59 18:59 Other: Voiding Method Toilet Toilet # Voids 4 1 - Labs CBC & Chem 7: 04/23/23 08:29 04/23/23 08:29 Labs: Abnormal Lab Results - Last 24 Hours (Table) 04/23/23 Range/Units 08:29 MCV 101.4 H (80.0-100.0) fL Lymphocytes # 0.9 L (1.0-4.8) k/uL
[2023-04-23] MEDS: SODIUM CHLORIDE 0.9% 1,000 ML IV SCH ×2 (17:49→23:51)
[2023-04-23] MEDS ORDERED: APIXABAN 5 MG TAB PO SCH (21:00)
[2023-04-23] MEDS: DONEPEZIL 10 MG TAB PO SCH (21:51)
[2023-04-23] MEDS: APIXABAN 5 MG TAB PO SCH (21:51)
[2023-04-23] MEDS: ATORVASTATIN 20 MG TAB PO SCH (21:51)
[2023-04-24] MEDS: LEVOTHYROXINE 25 MCG TAB PO SCH (06:36)
[2023-04-24 08:33] VITALS: BP 139/72; PULSE 62; RESP 17; TEMP 98.2
[2023-04-24] MEDS: PIPERACILLIN-TAZOBACTAM 3.375 GM in SODIUM CHLORIDE 0.9% 100 ML IVPB SCH (09:47)
[2023-04-24] MEDS: PANTOPRAZOLE 40 MG/10 ML VIAL IV SCH (09:47)
[2023-04-24] MEDS: APIXABAN 5 MG TAB PO SCH (09:56)
[2023-04-24] MEDS: POTASSIUM CHLORIDE ER 10 MEQ TAB.ER.PRT PO SCH (09:57)
[2023-04-24] MEDS: NIFEdipine XL 30 MG TAB.ER.24 PO SCH (09:57)
[2023-04-24] MEDS: METOPROLOL SUCCINATE (ER) 100 MG TAB.ER.24H PO SCH (09:57)
[2023-04-24] MEDS: MEMANTINE 5 MG TAB PO SCH (09:57)
[2023-04-24] MEDS ORDERED: PANTOPRAZOLE 40 MG TABLET PO SCH (10:00)
--- NOTE | 2023-04-24 13:14 | P.PN ---
Subjective Progress Note Date: 04/24/23 87 year old woman with history of CABG, MV repair, Paroxysmal AFib on Eliquis, HTN, HLD, Hypothyroidism presented for evaluation of SBO and non-reducible hernia. Medicine consulted for medical management. Underwent open repair incarcerated incisional hernia with mesh on 04/20. 04/23 Patient was seen and examined. Reports well controlled pain at the site of incision. CBC MCV 101.4. BMP unremarkable. Surgery recommends CLD and increased activity level. 04/24 Patient was seen and examined. Doing well. No complaints. Plans for swing bed vs home. General: non toxic, no distress, appears at stated age Derm: warm, dry Head: atraumatic, normocephalic, symmetric Eyes: EOMI, no lid lag, anicteric sclera Cardiovascular: S1S2 reg, no murmur Lungs: CTA bilateral, no rhonchi, no rales , no accessory muscle use Abdominal: soft, nontender to palpation, no guarding, no appreciable organomegaly Ext: no gross muscle atrophy, no edema, no contractures Neuro: no focal neuro deficits Psych: Alert, oriented, appropriate affect Based on my assessment of this patient, this patient meets a moderate complexity level of care. Patient has a new diagnosis of incarcerated hernia status post open repair incarcerated incisional hernia with mesh on 04/20 with uncertain prognosis. Nonreducible hernia Small bowel obstruction: Regular diet. Surgery management. History of 4 vessel CABG: Metoprolol as below. Lipitor 20 mg PO QHS. Mitral valve repair Paroxysmal atrial fibrillation: Restart Eliquis 5 mg PO BID. Metoprolol 100 mg PO QD. Hypertension: Metoprolol as above. Nifedipine 30 mg PO QD. Hyperlipidemia: Lipitor as above. Hypothyroidism: Synthroid 25 mcg PO QD. CODE STATUS: FULL CODE DVT Prophylaxis: Eliquis PO GI Prophylaxis: Protonix IV Designated medical POA if patient is not able to make medical decisions for themselves: I have reviewed the following property consultant notes: Surgery note. I have reviewed the results of the following tests: I have ordered the following tests: I have discussed the care of this patient with the following independent historian: I have independently interpreted the following test below: I have discussed the management of this patient with the following physician: Objective - Vital Signs Vital signs: Vital Signs Temp 98.2 F 04/24/23 07:59 Pulse 62 04/24/23 07:59 Resp 17 04/24/23 07:59 BP 139/72 04/24/23 07:59 Pulse Ox 96 04/24/23 07:59 FiO2 Intake & Output 04/23/23 04/24/23 04/24/23 18:59 06:59 18:59 Other: Voiding Method Toilet # Voids 4 3 # Bowel Movements 1 1 - Labs CBC & Chem 7: 04/23/23 08:29 04/23/23 08:29
--- NOTE | 2023-04-24 13:44 | P.DS ---
Providers Date of admission: 04/20/23 03:23 Expected date of discharge: 04/24/23 Attending physician: Dewey Alejandro Consults: 04/20/23 03:36 Consult Physician Routine Consulting Provider: Yari Roy Consult Reason/Comments: [employer] Do you want consulting provider notified?: Yes Primary care physician: Jeramy Mckeon [facility] Course: Discharge diagnosis 1. Incarcerated incisional hernia with bowel obstruction Hospital course This is a 87-year-old female who presented with abdominal pain and nausea and vomiting. She had a CAT scan completed their the head showed evidence of multiple borderline dilated small bowel loops measuring up to nearly 3 cm concerning for an evolving obstruction secondary to a right abdominal wall hernia containing bowel.. Patient is status post open repair of incarcerated incisional hernia with mesh. Patient tolerated surgery well. Her pain is controlled. She is tolerating diet. She is having bowel movements. She has been up and ambulating. Afebrile. Patient does have ecchymosis along the incision line. Area is soft. Patient is stable for discharge. Please refer to chart for any further details. Physician Electrical Controls Designer note has been reviewed by physician. Signing provider agrees with the documented findings, assessment, and plan of care. Patient Condition at Discharge: Stable Plan - Discharge Summary Discharge Rx Participant: No New Discharge Prescriptions: Continue Apixaban [Eliquis] 5 mg PO BID Potassium Chloride ER [K-Dur 10] 10 meq PO BID Metoprolol Succinate (ER) [Toprol XL] 100 mg PO DAILY Levothyroxine Sodium [Synthroid] 25 mcg PO DAILY Donepezil [Aricept] 10 mg PO HS Memantine [Namenda] 5 mg PO DAILY Rosuvastatin [Crestor] 10 mg PO HS NIFEdipine [Adalat CC] 30 mg PO DAILY Discharge Medication List Apixaban [Eliquis] 5 mg PO BID 04/20/23 [History] Donepezil [Aricept] 10 mg PO HS 04/20/23 [History] Levothyroxine Sodium [Synthroid] 25 mcg PO DAILY 04/20/23 [History] Memantine [Namenda] 5 mg PO DAILY 04/20/23 [History] Metoprolol Succinate (ER) [Toprol XL] 100 mg PO DAILY 04/20/23 [History] NIFEdipine [Adalat CC] 30 mg PO DAILY 04/20/23 [History] Potassium Chloride ER [K-Dur 10] 10 meq PO BID 04/20/23 [History] Rosuvastatin [Crestor] 10 mg PO HS 04/20/23 [History] Follow up Appointment(s)/Referral(s): Jeramy Desai MD [Primary Care Provider] - 1-2 days [facility]idential [facility] [NON-STAFF] - As Needed Dewey Alejandro MD [Medical Doctor] - 1 Week Activity/Diet/Wound Care/Special Instructions: No lifting over 10 pounds Shower daily. No soaking or tub baths for 2 weeks Very light activity until you are reevaluated at your follow up appointment with your surgeon Discharge Disposition: HOME WITH HOME HEALTH SERVICES
== END 2023-04-24 15:11 | disposition home health service (06) | DRG 355 ==
LOC: EC 02:58 → 4SSUR 03:23
PROVIDERS: ADMIT Surgery; ATTEND Surgery
PROC: 0D9670Z Drainage of Stomach with Drainage Device, Via Natural or Artificial Opening (ICD-10-PCS; 2023-04-20)
PROC: 0WUF0JZ Supplement Abdominal Wall with Synthetic Substitute, Open Approach (ICD-10-PCS; principal; 2023-04-20 09:15)
DX: K43.0 Incisional hernia with obstruction, without gangrene (principal); I10 Essential (primary) hypertension; I48.0 Paroxysmal atrial fibrillation; I25.10 Atherosclerotic heart disease of native coronary artery without angina pectoris; E03.9 Hypothyroidism, unspecified; E78.5 Hyperlipidemia, unspecified; F03.90 Unspecified dementia, unspecified severity, without behavioral disturbance, psychotic disturbance, mood disturbance, and anxiety; Z79.01 Long term (current) use of anticoagulants; Z79.890 Hormone replacement therapy; Z79.899 Other long term (current) drug therapy; Z90.49 Acquired absence of other specified parts of digestive tract; Z95.1 Presence of aortocoronary bypass graft; Z95.828 Presence of other vascular implants and grafts; Z28.21 Immunization not carried out because of patient refusal
CPT/HCPCS: 71045; 74018; 80048; 80053; 83735; 84100; 85025; 88302; 96361; 96374; 99285